=== PATIENT | female | born 1940 | race Caucasian/White ===

== ENCOUNTER → 2017-06-22 | Outpatient (CLI) | payer MEDICARE, OTHER ==
[2017-06-22 16:59] LABS: BASO % 0.5 % (0.0-1.0); EOS # 0.1 10^3/uL (0.0-0.50); EOS % 1.3 % (0.0-3.0); HEMATOCRIT 40.2 % (36.0-47.0); HEMOGLOBIN 13.1 g/dl (12.0-15.5); IMMATURE GRANULOCYTE % 0.2 % (0-3.0); LYMPH # 3.2 10^3/uL (1.5-4.5); LYMPH % 37.6 % (24.0-44.0); MEAN CORPUSCULAR HEMOGLOBIN 28.7 pg (27.0-33.0); MEAN CORPUSCULAR HGB CONC 32.6 g/dl (32.0-36.5); MEAN CORPUSCULAR VOLUME 88.2 fl (80.0-96.0); MONO # 0.7 10^3/uL (0.0-0.8); MONO % 8.2 % (0.0-5.0); NEUTROPHILS # 4.4 10^3/uL (1.8-7.7); NEUTROPHILS % 52.2 % (36.0-66.0); PLATELET COUNT, AUTOMATED 249 10^3/uL (150-450); RED BLOOD COUNT 4.56 10^6/uL (4.00-5.40); WHITE BLOOD COUNT 8.4 10^3/uL (4.0-10.0)
== END ==
LOC: M ADAMS 15:34
DX: R50.9 Fever, unspecified (principal)
CPT/HCPCS: 85025

== ENCOUNTER → 2022-10-29 | Outpatient (REF) | payer MEDICARE, OTHER ==
[~2022-10-29] MED LIST: AMLO10TAB; BABY81CH; LIPI20TA; LORAPOW30; TRAZ50TA; ZEST20TA4
== END ==
LOC: M LAB REF 16:29
PROVIDERS: ATTEND Internal Medicine
DX: D51.9 Vitamin B12 deficiency anemia, unspecified (principal)